=== PATIENT | female | born 1980 ===

== ENCOUNTER 2019-05-17 00:54 | Emergency (ER) | payer BC, MEDICAID ==
[2019-05-17] MEDS ORDERED: ASPIRIN PO ONE (01:27)
[2019-05-17] MEDS ORDERED: TORADOL IV ONE (02:12)
[2019-05-17] MEDS ORDERED: PEPCID IV ONE (02:12)
--- NOTE | 2019-05-17 02:16 | Emergency Department Report ---
ED Chest Pain HPI - General Chief Complaint: Chest Pain Stated Complaint: CHEST PAIN Time Seen by Provider: 05/17/19 01:47 Source: patient, RN notes reviewed Mode of arrival: Ambulatory Limitations: No Limitations - History of Present Illness Initial Comments: Primary continuous improvement specialist: Dr. Dave Abraham This is a pleasant 39-year-old female who is not known to this provider previously. Patient has a history of spontaneous unprovoked pericardial effusion. The patient does not have any significant medical history that she is aware of. The patient presents to the emergency room today with a complaint of nontraumatic left sided chest wall pain, which does not radiate to the back, arms or neck. There is no vomiting, there is no diaphoresis. There are no DVT or pulmonary embolism risk factors. The patient has not taken aspirin recently. Chest wall pain increases with palpation, and it decreases with rest. Patient indicates that her left forearm feels tingling. Patient reports that she felt nauseous in the car but she is not nauseous now. There is no family history of heart disease that she is aware. There is no family history of coronary artery disease that she is aware of. MD Complaint: chest pain -: Sudden Onset: during rest, other (patient reports doing heavy lifting yesterday.) Pain Location: other Severity: mild Quality: aching Consistency: intermittent Improves With: rest Worsens With: palpation, movement Other Symptoms: denies: cough, fever, syncope, rash, acid taste in mouth, leg swelling, palpitations, burping Aspirin use within the Past 7 Days: (0) No - Related Data On Oral Contraceptives: Yes Previous Rx's Medication Instructions Recorded Last Taken Type Acetaminophen [Non-Aspirin Extra 500 mg PO Q6HR PRN #30 tablet 05/17/19 Unknown Rx Strength] Ibuprofen [Motrin] 600 mg PO Q8H PRN #30 tablet 05/17/19 Unknown Rx Ondansetron [Zofran Odt] 4 mg PO Q8HR PRN #20 tab.rapdis 05/17/19 Unknown Rx Allergies Allergy/AdvReac Type Severity Reaction Status Date / Time No Known Allergies Allergy Unverified 05/17/19 01:06 Heart Score - HEART Score History: Slightly suspicious EKG: Non-specific Age: < 45 Risk factors: No known risk factors Troponin: < normal limit HEART Score: 1 - Critical Actions Critical Actions: 0-3 pts:0.9-1.7%risk of adverse cardiac event.Candidate for discharge ED Review of Systems ROS: Stated complaint: CHEST PAIN Other details as noted in HPI Comment: All other systems reviewed and negative Cardiovascular: chest pain Gastrointestinal: nausea Neurological: paresthesias, other (left forearm. Does not radiate from the chest.) ED Past Medical Hx - Past Medical History Previous Medical History?: Yes Additional medical history: Pericardial Effusion 2013 - Surgical History Past Surgical History?: Yes Additional Surgical History: Pericardial Effusion 2013 - Social History Smoking Status: Never Smoker Substance Use Type: None - Medications Home Medications: Home Medications Medication Instructions Recorded Confirmed Last Taken Type Acetaminophen [Non-Aspirin Extra 500 mg PO Q6HR PRN #30 tablet 05/17/19 Unknown Rx Strength] Ibuprofen [Motrin] 600 mg PO Q8H PRN #30 tablet 05/17/19 Unknown Rx Ondansetron [Zofran Odt] 4 mg PO Q8HR PRN #20 tab.rapdis 05/17/19 Unknown Rx ED Physical Exam - General Limitations: No Limitations General appearance: alert, in no apparent distress - Head Head exam: Present: atraumatic, normocephalic - Eye Eye exam: Present: normal appearance, EOMI. Absent: nystagmus - ENT ENT exam: Present: normal exam, normal orophraynx, mucous membranes moist, normal external ear exam - Neck Neck exam: Present: normal inspection, full ROM. Absent: tenderness, mening ismus - Respiratory Respiratory exam: Present: normal lung sounds bilaterally, chest wall tenderness, other (chaperoned by nurse Jose Saez). Absent: respiratory distress, wheezes, rales, rhonchi, stridor - Cardiovascular Cardiovascular Exam: Present: regular rate, normal rhythm, normal heart sounds. Absent: bradycardia, tachycardia, irregular rhythm, systolic murmur, diastolic murmur, rubs, gallop - GI/Abdominal GI/Abdominal exam: Present: soft. Absent: distended, tenderness, guarding, rebound, rigid, pulsatile mass - Extremities Exam Extremities exam: Present: normal inspection, full ROM, other (2+ pulses noted in the bilateral upper, lower extremities. Compartments soft. No long bony tenderness. The pelvis is stable.). Absent: pedal edema, joint swelling, calf tenderness - Back Exam Back exam: Present: normal inspection, full ROM. Absent: tenderness, CVA tenderness (R), CVA tenderness (L), paraspinal tenderness, vertebral tenderness - Neurological Exam Neurological exam: Present: alert, oriented X3, normal gait, other (Extraocular movements intact. Tongue midline. No facial droop. Facial sensation intact to light touch in the V1, V2, V3 distribution bilaterally. 5 and 5 strength in 4 extremities.. Sensation is intact to light touch in 4 extremities.). Absent: motor sensory deficit - Psychiatric Psychiatric exam: Present: normal affect, normal mood - Skin Skin exam: Present: warm, dry, intact, normal color. Absent: rash ED Course Vital Signs 05/17/19 05/17/19 05/17/19 01:21 02:20 02:21 Temperature 98.2 F 98.7 F Pulse Rate 72 71 Respiratory 20 19 19 Rate Blood Pressure 119/76 Blood Pressure 120/76 [Left] O2 Sat by Pulse 100 99 99 Oximetry - Reevaluation(s) Reevaluation #1: 05/17/19 02:39 Differential diagnosis, including not limited to: Costochondritis, GERD, gastritis, hiatal hernia, pneumonia, acute coronary syndrome Assessment and plan: 39-year-old female, very well appearing, no pulmonary embolism or DVT risk factors, low risk by well's criteria, low risk by ROBERT score, low risk by heart score, perc negative presenting with reproducible left- sided chest wall pain in the context of heavy lifting. The patient is afebrile, with reassuring vital signs, and appears quite comfortable. EKG abnormal without prior for comparison, however, not consistent with ST elevation myocardial infarction. Bedside transthoracic echocardiogram performed by myself shows gross normal left ventricular systolic function, ejection fraction approximately 55-60%, with no obvious large effusion. We will treat the patient's pain, placed her on a service clerk, repeat EKG, repeat troponin, and observed for approximately 3-4 hours. Patient at low risk for major adverse cardiac event. Patient understands this., Reevaluation #2: 05/17/19 04:45 Troponin negative 2. Patient resting comfortably, patient in no acute distress. Serial EKGs unchanged from prior. X-ray of the chest unremarkable. Patient will be discharged. ROBERT score - Robert Score Age > 65: (0) No Aspirin use within the Past 7 Days: (0) No 3 or more CAD Risk Factors: (0) No 2 or more Angina events in past 24 hrs: (0) No Known CAD with more than 50% Stenosis: (0) No Elevated Cardiac Markers: (0) No ST Deviation Greater than 0.5mm: (0) No ROBERT Score: 0 ED Medical Decision Making - Lab Data Result diagrams: 05/17/19 02:05 05/17/19 02:05 Vital Signs 05/17/19 05/17/19 05/17/19 01:21 02:20 02:21 Temperature 98.2 F 98.7 F Pulse Rate 72 71 Respiratory 20 19 19 Rate Blood Pressure 119/76 Blood Pressure 120/76 [Left] O2 Sat by Pulse 100 99 99 Oximetry Lab Results 05/17/19 Range/Units 02:05 Nolan % (Auto) 8.5 H (0.0-7.3) % Eos % (Auto) 3.1 (0.0-4.3) % Nolan # 0.5 (0.0-0.8) K/mm3 Eos # 0.2 (0.0-0.4) K/mm3 Baso # 0.1 (0.0-0.1) K/mm3 Seg Neutrophils % 48.8 (40.0-70.0) % Seg Neutrophils # 2.7 (1.8-7.7) K/mm3 Vital Signs 05/17/19 05/17/19 05/17/19 01:21 02:20 02:21 Temperature 98.2 F 98.7 F Pulse Rate 72 71 Respiratory 20 19 19 Rate Blood Pressure 119/76 Blood Pressure 120/76 [Left] O2 Sat by Pulse 100 99 99 Oximetry Lab Results 05/17/19 05/17/19 05/17/19 Range/Units 02:05 02:05 02:05 WBC 5.6 (4.5-11.0) K/mm3 RBC 3.88 (3.65-5.03) M/mm3 Hgb 10.7 (10.1-14.3) gm/dl Hct 32.5 (30.3-42.9) % MCV 84 (79-97) fl MCH 28 (28-32) pg MCHC 33 (30-34) % RDW 16.5 H (13.2-15.2) % Plt Count 265 (140-440) K/mm3 Lymph % (Auto) 38.3 H (13.4-35.0) % Nolan % (Auto) 8.5 H (0.0-7.3) % Eos % (Auto) 3.1 (0.0-4.3) % Baso % (Auto) 1.3 (0.0-1.8) % Lymph # 2.1 (1.2-5.4) K/mm3 Nolan # 0.5 (0.0-0.8) K/mm3 Eos # 0.2 (0.0-0.4) K/mm3 Baso # 0.1 (0.0-0.1) K/mm3 Seg Neutrophils % 48.8 (40.0-70.0) % Seg Neutrophils # 2.7 (1.8-7.7) K/mm3 Sodium 141 (137-145) mmol/L Potassium 4.5 (3.6-5.0) mmol/L Chloride 105.6 (98-107) mmol/L Carbon Dioxide 26 (22-30) mmol/L Anion Gap 14 mmol/L BUN 7 (7-17) mg/dL Creatinine 0.8 (0.7-1.2) mg/dL Estimated GFR > 60 ml/min BUN/Creatinine Ratio 9 % Glucose 104 H (65-100) mg/dL Calcium 8.6 (8.4-10.2) mg/dL Total Creatine Kinase (30-135) units/L Troponin T < 0.010 (0.00-0.029) ng/mL HCG, Qual Negative (Negative) 05/17/19 Range/Units 02:05 WBC (4.5-11.0) K/mm3 RBC (3.65-5.03) M/mm3 Hgb (10.1-14.3) gm/dl Hct (30.3-42.9) % MCV (79-97) fl MCH (28-32) pg MCHC (30-34) % RDW (13.2-15.2) % Plt Count (140-440) K/mm3 Lymph % (Auto) (13.4-35.0) % Nolan % (Auto) (0.0-7.3) % Eos % (Auto) (0.0-4.3) % Baso % (Auto) (0.0-1.8) % Lymph # (1.2-5.4) K/mm3 Nolan # (0.0-0.8) K/mm3 Eos # (0.0-0.4) K/mm3 Baso # (0.0-0.1) K/mm3 Seg Neutrophils % (40.0-70.0) % Seg Neutrophils # (1.8-7.7) K/mm3 Sodium (137-145) mmol/L Potassium (3.6-5.0) mmol/L Chloride (98-107) mmol/L Carbon Dioxide (22-30) mmol/L Anion Gap mmol/L BUN (7-17) mg/dL Creatinine (0.7-1.2) mg/dL Estimated GFR ml/min BUN/Creatinine Ratio % Glucose (65-100) mg/dL Calcium (8.4-10.2) mg/dL Total Creatine Kinase 149 H (30-135) units/L Troponin T (0.00-0.029) ng/mL HCG, Qual (Negative) - EKG Data -: EKG Interpreted by Mt EKG shows normal: sinus rhythm Rate: normal - EKG Data When compared to previous EKG there are: previous EKG unavailable 05/17/19 02:41 EKG #1 shows a normal sinus rhythm, 70 bpm, premature ventricular contractions, poor R progression V2, question juvenile T-wave inversion in V2, there is no prior EKG available for comparison, this EKG is not consistent with ST elevation myocardial infarction. There is no prior EKG available for comparison. EKG #2 appears to be unchanged from prior. Critical care attestation.: If time is entered above; I have spent that time in minutes in the direct care of this critically ill patient, excluding procedure time. ED Disposition Clinical Impression: Chest wall pain Disposition: DC-01 TO HOME OR SELFCARE Is pt being admited?: No Does the pt Need Aspirin: No Condition: Stable Instructions: Costochondritis (ED) Additional Instructions: Take the pain medications as needed/directed. Follow up with her continuous improvement specialist within the next 3-5 days. Return to the emergency room right away with new, worsening or different symptoms, productive vomiting, change in mental status, confusion, inability to tolerate liquid feeds, it, worsen or different symptoms not present on the initial emergency room evaluation. Prescriptions: Ibuprofen [Motrin] 600 mg PO Q8H PRN #30 tablet PRN Reason: Pain Acetaminophen [Non-Aspirin Extra Strength] 500 mg PO Q6HR PRN #30 tablet PRN Reason: Pain , Severe (7-10) Ondansetron [Zofran Odt] 4 mg PO Q8HR PRN #20 tab.rapdis PRN Reason: Nausea Referrals: ETIENNE GOMEZ MD [Primary Care Provider] - 3-5 Days MAX ARMENTA MD [Staff Physician] - 3-5 Days
[2019-05-17 02:38] LABS: Basophils # (Auto) 0.1 K/mm3 (0.0-0.1); Basophils % (Auto) 1.3 % (0.0-1.8); Eosinophils # (Auto) 0.2 K/mm3 (0.0-0.4); Eosinophils % (Auto) 3.1 % (0.0-4.3); Hematocrit 32.5 % (30.3-42.9); Hemoglobin 10.7 gm/dl (10.1-14.3); Lymphocytes # (Auto) 2.1 K/mm3 (1.2-5.4); Lymphocytes % (Auto) 38.3 % (13.4-35.0); Mean Corpuscular HGB Conc 33 % (30-34); Mean Corpuscular Volume 84 fl (79-97); Monocytes # (Auto) 0.5 K/mm3 (0.0-0.8); Monocytes % (Auto) 8.5 % (0.0-7.3); Platelet Count 265 K/mm3 (140-440); Red Blood Count 3.88 M/mm3 (3.65-5.03); Red Cell Distribution Width 16.5 % (13.2-15.2)
[2019-05-17 02:56] LABS: BUN/Creatinine Ratio 9; Blood Urea Nitrogen 7 mg/dL (7-17); Calcium 8.6 mg/dL (8.4-10.2); Hemolysis Index 92
--- NOTE | 2019-05-17 04:12 | XRay Report ---
PROCEDURE: XR CHEST ROUTINE 2V TECHNIQUE: PA and lateral chest radiographs were obtained. HISTORY: chest wall pain COMPARISONS: None. FINDINGS: Frontal and lateral views the chest were acquired. The heart is normal in size. The lungs a ppear clear. There is no consolidative pulmonary infiltrate. There is no pneumothorax. IMPRESSION: No active disease in the chest This document is electronically signed by Carlton Larson MD., May 17 2019 04:10:18 AM ET
[2019-05-17 05:36] VITALS: BP 110/62
== END 2019-05-17 06:25 | disposition home or self-care (01) ==
LOC: ED 00:54
DX: R07.89 Other chest pain (principal); Z79.899 Other long term (current) drug therapy
CPT/HCPCS: 36415; 71046; 80048; 82550; 84484; 84703; 85025; 93005; 93010; 96374; 96375; 99284; J1885

== ENCOUNTER 2022-03-13 06:36 | Emergency (ER) | payer SELFPAY ==
[2022-03-13 06:44] VITALS: BP 147/96
== END 2022-03-13 13:09 | disposition left against medical advice (07) ==
LOC: ED 06:36
DX: I10 Essential (primary) hypertension (principal); Z53.21 Procedure and treatment not carried out due to patient leaving prior to being seen by health care provider